=== PATIENT | female | born 1980 ===

== ENCOUNTER 2019-05-26 13:06 | Emergency (ER) | payer SELFPAY ==
[~2019-05-26] VITALS: Ht 170.2 cm; Wt 86.2 kg
[2019-05-26] MEDS ORDERED: HYDROcodone-ACET 10/325MG TAB PO ONE (14:00)
[2019-05-26] MEDS ORDERED: ONDANSETRON ODT 4 MG TAB PO ONE (14:30)
[2019-05-26 15:05] LABS: Urine Bacteria FEW /hpf (None Seen); Urine Blood 2+ /uL (Negative); Urine Mucus FEW (None Seen); Urine Specific Gravity 1.007 (1.001-1.035); Urine WBC 3 /hpf (0 - 5)
[2019-05-26 15:35] VITALS: BP 122/67
== END 2019-05-26 15:45 | disposition home or self-care (01) ==
LOC: EDBD 13:06 → EDUNIT# 13:06 → ER 13:20
DX: S50.12XA Contusion of left forearm, initial encounter (principal); S40.012A Contusion of left shoulder, initial encounter; S70.02XA Contusion of left hip, initial encounter; S80.02XA Contusion of left knee, initial encounter; V43.52XA Car driver injured in collision with other type car in traffic accident, initial encounter; Y93.89 Activity, other specified; Y99.8 Other external cause status; Y92.410 Unspecified street and highway as the place of occurrence of the external cause
CPT/HCPCS: 36415; 73090; 73120; 73502; 73560; 81001; 84702; 99284; Q0162